=== PATIENT | female | born 1945 | race Caucasian/White ===

== ENCOUNTER → 2023-11-14 13:51 | Outpatient (REF) | payer OTHER, SELFPAY | LOC: RAD 13:51 | PROVIDERS: ATTENDING PHYSICIAN Surgery Vascular Surgery; FAMILY PHYSICIAN Student in an Organized Health Care Education/Training Program | DX: I65.23 Occlusion and stenosis of bilateral carotid arteries (principal) | CPT/HCPCS: 93880 ==

== ENCOUNTER 2023-12-05 06:10 | Inpatient (IN) | payer OTHER, SELFPAY ==
[2023-11-28 10:50] VITALS: BMI 45.6
[2023-11-28 11:13] LABS: % Basophils 1.5 % (0-2); % Immature Granulocytes 0.2 % (0-0.5); % Lymphocytes 34.4 % (20.5-51.1); % Monocytes 6.1 % (1.7-9.3); % Neutrophils 50.8 % (42.2-75.2); Absolute Basophils 0.1 10^3/uL (0-0.2); Absolute Eosinophils 0.5 10^3/uL (0-0.7); Absolute Lymphocytes 2.3 10^3/uL (1.2-3.4); Absolute Monocytes 0.4 10^3/uL (0.1-0.6); Absolute Neutrophils 3.4 10^3/uL (1.4-6.5); Hematocrit 37.7 % (37.0-47.0); Hemoglobin 12.5 g/dL (12.0-16.0); Mean Corp Hgb Conc. 33.2 g/dL (33.0-37.0); Mean Corpuscular Hgb 28.5 pg (27.0-31.0); Mean Corpuscular Volume 86.1 fL (81.0-99.0); Mean Platelet Volume 10.4 fL (7.4-10.4); Nucleated Red Blood Cells % 0 %; Platelet Count 182 10^3/uL (130-400); Red Blood Cell Count 4.38 10^6/uL (4.20-5.40); Red Cell Dist. Width 16.8 % (11.5-14.5); White Blood Cell Count 6.6 10^3/uL (4.8-10.8)
[2023-11-28 11:26] LABS: ALT (SGPT) 31 U/L (0-35); AST (SGOT) 47 U/L (14-36); Albumin 4.3 g/dl (3.5-5.0); Alkaline Phosphatase 114 U/L (38-126); Blood Urea Nitrogen 14 mg/dl (7-17); Calcium 9.3 mg/dl (8.4-10.2); Carbon Dioxide 31 mmol/L (22-30); Chloride 100 mmol/L (98-107); Estimated Creatinine Clearance 38 ml/min; Glucose 104 mg/dl (70-99); Potassium 3.7 mmol/L (3.5-5.1); Sodium 139 mmol/L (135-145); Total Bilirubin 0.8 mg/dl (0.2-1.3); Total Protein 7.5 g/dl (6.3-8.2); eGFR 39.23
[2023-12-05] VITALS (69 sets, daily range): BP systolic 65–227; BP diastolic 26–111; BMI 44.6
[2023-12-05] MEDS: NSS 317 ML IV (07:00)
[2023-12-05 07:35] LABS: Glucose - Point of Care 100 mg/dl (70-99)
[2023-12-05 08:23] LABS: ACT-LR - POC 208 Seconds (116-155)
[2023-12-05 09:05] LABS: ACT-LR - POC 258 Seconds (116-155)
[2023-12-05] MEDS: ZOFRAN 4 MG IV ×2 (09:53→11:22)
[2023-12-05] MEDS: DOPamine 400 MG 250 IV ×2 (09:55→22:22)
--- NOTE | 2023-12-05 10:09 | PTCARENOTE ---
Addendum entered by Preeti Murphy RN 12/05/23 10:20:
Dopamine now at 2.5 mg/kg due to BP 140/50
Addendum entered by Preeti Murphy RN 12/05/23 10:19:
Zofran given At 953
Original Note:
Pt arrived from the procedure room to [facility]. Unable to get a BP from several atempts . Rt upper arm, Rt calf, lt lower arm then manual. Initial BP was 60S. Dopamine started at 5mg/kg/min . Dr Yang was able to get a manual pressure of 70 S.IVF to
pressure bag. and open. Pt became nauseous and vomited bile material approx 100ml. Did not aspirate. she did c/o initially of a headache. Now at 1017 she is sleeping. Vital and all post procedure assessment times are off. Radial band remains
inplace with BP cuff on the RT upper arm per MD.
[2023-12-05] MEDS: NSS 1000 IV (10:25)
--- NOTE | 2023-12-05 11:43 | PTCARENOTE ---
Pt continues to be extremely restless.Still with an occipital headache 03/04 no change from when first recd.Dopamine was titrated down to 1.25 with good BP control until her BP was 77S. Dopamine back up to 5mg/kg then to 10. Pt started with dry
heaves again. Zofran 4 given. asked for BP 140-160 S. Mouth rinsed after small amt of mucous she brought up. Now sleeping on her rt side. Radial band intact with 8ml of air now . No problem with the cuff on the same side. Cristina DE OLIVEIRA has been at
the bedside and orders followed Dopamine now at 7.5mg/kg
--- NOTE | 2023-12-05 12:02 | PTCARENOTE ---
BP at 1200 185/71 Dopamine decreased to 5mg/kg
--- NOTE | 2023-12-05 13:53 | ITS.CL.PN ---
[facility] - Procedure Note
Procedure
Procedure Note:
CAROTID ANGIOGRAM AND CAROTID STENT REPORT
Date of Procedure: 12/05/2023
Referring: Nick Yang MD
PROCEDURE SUMMARY:
1. Cervical and cerebral angiography of the right carotid artery demonstrating ostial occlusion of the right external carotid artery with tandem 80% and 40% stenoses in the proximal right internal carotid artery
2. Successful angioplasty and stenting of the tandem 80% and 60% proximal right ICA lesions using a 9 x 30 mm precise stent with distal embolic filter protection
DESCRIPTION OF PROCEDURE: Following discussion with the patient and with Dr. Robert of vascular surgery, she was electively admitted for planned carotid angiography with right ICA stenting. Given her BMI of 44, I decided to attempt to do this
procedure via a right radial artery approach. Access was obtained via the right radial artery using a 5 [place] sheath. Heparin 5000 units was administered. Following an ACT of 218, we administered additional 2000 units of heparin. The ACT was
kept greater than 250 for the duration of the procedure. A 5 JR4 catheter was advanced into the right common carotid artery allowing cervical and cerebral angiography. Results include the following: The right common carotid artery is widely patent
without obstruction. The distal right common and proximal right internal carotid has severe calcific stenosis estimated at 80% severity. There is a second area of 40% stenosis approximately 15 mm superior in the proximal LORI. Cerebral imaging
demonstrates no further disease in the ICA. The right LEAH and right MCA are widely patent.
At this point, we opted to proceed with stenting. Of note, this patient was not felt to be a appropriate CEA candidate due to her body habitus with short neck. This is why we opted for STEPHAN despite the highly nature of the lesion. A 0.035 supra
core wire was advanced through the DELON catheter and positioned just inferior to the distal right common carotid artery. The DELON catheter was removed keeping the wire tip at this position. We then advanced a 6 x 90 cm shuttle sheath to the proximal
subclavian artery. The angle from the subclavian into the right common carotid artery was quite acute and the stiff dilator of the shuttle sheath would not make the turn into the common carotid. The dilator was removed and a 6 [place]an JR4
diagnostic catheter was advanced into the common carotid allowing us to advance the shuttle sheath around the angle into the common carotid. At this point, the JR4 and the supra core wire were removed. A BMW wire was advanced into the petrous
segment of the right ICA. A 6.0 spider filter was advanced over the BMW wire into the petrous segment in the BMW was removed. The filter was then advanced out of the delivery sheath. At this time predilatation was accomplished with a 3.0 x 30 mm
trek balloon to 12 michael. There was complete balloon expansion. Patient tolerated balloon angioplasty without significant bradycardia or hypotension. A 9 x 30 mm precise stent was advanced and positioned to cover both lesions with the proximal edge
of the stent in the distal common carotid artery. Stent deployment was followed by postdilatation with a 5.0 x 30 mm Via Trak balloon to 10 michael which also resulted in complete balloon expansion. Patient had bradycardia requiring atropine 0.5 mg
and hypotension with systolic blood pressure in the 90-95 range requiring several doses of phenylephrine. Angiography showed excellent positioning of the stent with brisk runoff. At this point, we attempted to capture the filter to complete the
procedure. This proved to be extremely difficult and the filter became stuck within the stent. Maneuvers including moving the patient's head left and right did not allow capture with the capture sheath. Ultimately, the capture sheath was advanced
to the filter and the entire system was removed with forceful traction. Examination of the filter demonstrated no embolic debris in the filter basket and the entire filter complex was intact. There was some shortening of the distal extent of the
stented segment. Final angiography demonstrated brisk flow through the stented segment and cerebral angiography showed brisk flow in the MCA and LEAH. Patient remained neurologically stable for the duration of the procedure and afterwards both in
the [facility] and for hours in the recovery room.
ANTI-COAGULATION THERAPY
1: Heparin 7000 units
Closure Device Used: None-the procedure was performed via the right radial artery. The Gideon's test was normal prior to the procedure. An R band was used for hemostasis.
Radiation (mGy): 537
DAP (cm2.Gy): 62.1
Fluoroscopy time: 21.7 minutes
CONCLUSIONS: Right carotid angiography showing severe calcific distal right common/proximal right internal carotid artery stenosis. This was successfully treated with carotid artery stenting with distal embolic protection. The procedure was
complicated by difficulty with removal of the filter but ultimately it was removed with forceful traction. We discussed the option for return for left ICA stenting in the next 1-2 months. This will be done via a transfemoral approach.
Copy to: Brittany Harding MD, Nick Yang MD
Nick Yang MD, [facility], [facility]
--- NOTE | 2023-12-05 14:11 | PTCARENOTE ---
At 1312 BP was 92/64 dopamine increased from 5 to 7.5mg/kg . At 1320 BP was 126/72 . dopamine increased again tp 10mg/kg. At 1350 BP was 186/81 decreased to 7.5mg/kg then bp at 1359 was 177/60 decreased to %mg/kg . Now at 1414 BP is 145/56. Pt
voided x2 slight odor noted. Comfortable a full neuro exam was done at 1400 and is 2. Still with a headache 03/04. Family updated. took sips of water.
--- NOTE | 2023-12-05 15:23 | CON.INTV ---
Consultation
Consultation Request
Date/Time Consultation Requested: 12/05/2023
Date/Time Consultation Performed: 12/05/2023
Requesting Provider: Dr. Yang
Performing Provider: Dr. Shan Cool
Reason for Consultation: Status post right carotid stent, hypotension requiring vasopressors.
Medical History
-
History of Present Illness:
77-year-old woman with history of obesity, fibromyalgia, obstructive sleep apnea, intolerant to CPAP, admitted electively through the [facility] for revascularization of carotid on the right. Underwent stent placement of the right carotid, became
hypotensive after the procedure. Required blood pressure augmentation with dopamine.
Case has been discussed with Dr. Díazr will maintain blood pressure augmentation, goal of mean arterial blood pressure over 65 mmHg for the next 4 to 5 hours.
Patient is asymptomatic.
Neurological exam at baseline.
Past Medical History
Past Medical History: Other (See assessment and plan section)
Social History
Tobacco: Former Smoker (Quit 20 years ago)
Employment: Retired
Family History
Family History: Reviewed & Not Pertinent
Allergies / Home Medications
Allergies
Allergy/AdvReac Type Severity Reaction Status Date / Time
No Known Drug Allergies Allergy Unknown Verified 12/05/23 06:33
Home Medications
Medication Instructions Recorded Confirmed Last Taken Type
levothyroxine 137 mcg tablet 200 mcg PO DAILY Thyroid 09/17/17 12/05/23 12/05/23 01:00 History
atorvastatin 20 mg tablet 20 mg PO DAILY High cholesterol 08/22/22 12/05/23 12/05/23 01:00 History
bupropion HCl 300 mg 24 hr tablet, 300 mg PO DAILY Mental 08/22/22 12/05/23 12/05/23 01:00 History
extended release Health/Anxiety
irbesartan 300 mg tablet 300 mg PO DAILY Blood pressure 08/22/22 12/05/23 12/05/23 01:00 History
latanoprost 0.005 % eye drops 1 drp BOTH EYES HS Eye condition 08/22/22 12/05/23 12/04/23 21:00 History
omeprazole 40 mg capsule,delayed 40 mg PO DAILY Gastrointestinal 08/22/22 12/05/23 12/05/23 01:00 History
release issue
furosemide 40 mg tablet 40 mg PO DAILY #30 tabs 08/27/22 12/05/23 12/04/23 07:00 Rx
aspirin 81 mg tablet 81 mg PO DAILY 12/05/23 12/05/23 12/05/23 01:00 History
clopidogrel 75 mg tablet (Plavix) 75 mg PO DAILY 12/05/23 12/05/23 12/05/23 01:00 History
ibuprofen 600 mg tablet 600 mg PO Q8H PRN aches 12/05/23 12/05/23 12/05/23 01:00 History
Review of Systems
-
History Source: Patient
All other systems: Negative unless noted
Vitals / Labs / Diagnostic Testing
Vital Signs
Temp Pulse Resp BP Pulse Ox
98.7 F 96 16 177/60 96
12/05/23 06:29 12/05/23 14:09 12/05/23 14:09 12/05/23 14:09 12/05/23 14:09
Lab Data
11/28/23 11:01
11/28/23 11:01
Diagnostic Testing:
Physical Exam
-
HEENT: Normocephalic
Cardiovascular: S1/S2
Respiratory: Clear and Non-Labored Respirations
GI: Soft and Distended (Obese)
Neurology: Awake, Alert, Oriented and No Motor Deficits
Skin: Warm
General: Respiratory Distress (n)
Assessment
-
77-year-old woman admitted through the cardiac catheterization lab after undergoing a right carotid stent placement. Discussed with Dr. Yang, patient was relatively hypotensive in the emergency room. He would like to maintain mean arterial
blood pressure greater than 65 mmHg for the next 4 to 5 hours. Currently on dopamine.
History of bilateral carotid stenosis: Status post right carotid stent
Relative hypotension requiring vasopressors for augmentation
Conditions present prior admission
Morbid obesity
Carotid artery stenosis
Obstructive sleep apnea-intolerant to CPAP
Former smoker quit 20 years ago
Restrictive lung disease due to obesity
Anxiety
Arthritis
Hypertension
Depression
Fibromyalgia
PMR
Assessment and plan:
Case discussed with Dr. Yang, will maintain blood pressure augmentation with dopamine, goal of mean arterial blood pressure greater than 65 for the next 4 to 5 hours.
Will continue with neurovascular checks frequently
Hemodynamic monitoring
Currently dopamine at 5 mics per minute, will continue to wean off hopefully in the next 4 to 5 hours.
Bedrest for now
Obtain a CBC and a BMP obtain chest [id number]
-
Oxygen supplementation to maintain pulse ox above 90%
Patient has history of obstructive sleep apnea-intolerant to CPAP.
Avoid sedatives
-
Advance diet as tolerated
Gentle hydration with normal saline
Repeat creatinine and electrolytes tomorrow
-
Continue antiplatelet therapy
-
Restart outpatient medication
-
Maintain critical care status until able to wean off dopamine.
-
Critical care statement: A total of 31 minutes of critical care time was provided for this patient today. This includes management of unstable vital signs, evaluation of the patient at bedside, reviewing the patient's pertinent medical records
including radiographs, microbiology, laboratory evaluations and discussion with primary team, critical care nursing, and respiratory therapy.
[2023-12-05 15:43] LABS: Mean Corp Hgb Conc. 33.3 g/dL (33.0-37.0); Mean Corpuscular Hgb 28.6 pg (27.0-31.0); Mean Corpuscular Volume 85.7 fL (81.0-99.0); Mean Platelet Volume 10.9 fL (7.4-10.4); Platelet Count 144 10^3/uL (130-400); Red Blood Cell Count 3.85 10^6/uL (4.20-5.40); Red Cell Dist. Width 16.5 % (11.5-14.5); White Blood Cell Count 6.8 10^3/uL (4.8-10.8)
[2023-12-05 15:53] LABS: APTT 38.7 Sec (23.4-35.0); INR 1.18; PT 14.9 Sec (11.4-14.6)
[2023-12-05 15:54] LABS: Blood Urea Nitrogen 17 mg/dl (7-17); Calcium 8.7 mg/dl (8.4-10.2); Carbon Dioxide 27 mmol/L (22-30); Chloride 102 mmol/L (98-107); Estimated Creatinine Clearance 50 ml/min; Glucose 143 mg/dl (70-99); Potassium 3.7 mmol/L (3.5-5.1); Sodium 138 mmol/L (135-145)
--- NOTE | 2023-12-05 16:18 | PTCARENOTE ---
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 Pt AAOx3 and very pleasant. Reports slight headache. Neuro checks WNL. Right radial site dressing C/D/I. Dopamine gtt adjusted per protocol. Family at bedside. Pt ordering dinner at
this time.
[2023-12-05] MEDS: TYLENOL 650 MG PO (18:28)
--- NOTE | 2023-12-05 18:45 | PTCARENOTE ---
BP very labile. please see Dopamine titration.
--- NOTE | 2023-12-05 21:14 | PTCARENOTE ---
Pt received at 19:00. Ox3, drowsy but easily arousable. SR, palpable pulses, continues on dopamine gtt--titrated to keep SBP >100. While asleep, pulse ox decreased to mid 80s on 2L NC--increased to 4L. Purewick in place. Safe environment maintained,
call case within reach.
[2023-12-05] MEDS: XALATAN OPHTHALMIC SOLUTION 1 DROP BOTH EYES (22:25)
[2023-12-06] VITALS (38 sets, daily range): BP systolic 80–138; BP diastolic 34–91; BMI 44.7
--- NOTE | 2023-12-06 00:43 | PTCARENOTE ---
Pt assessment unchanged. Dopamine gtt continues, titrated to maintain SBP >100. Currently infusing at 4mcg/kg/min.
--- NOTE | 2023-12-06 00:47 | PTCARENOTE ---
Assessment unchanged. Pt remains on dopamine, titrated to maintain SBP >100. Currently infusing at 4mcg/kg/min. Safe environment maintained, pt refused assistance with repositioning. Plan of care ongoing.
[2023-12-06 04:41] LABS: Hematocrit 31.3 % (37.0-47.0); Hemoglobin 10.4 g/dL (12.0-16.0); Mean Corp Hgb Conc. 33.2 g/dL (33.0-37.0); Mean Corpuscular Hgb 28.7 pg (27.0-31.0); Mean Corpuscular Volume 86.2 fL (81.0-99.0); Mean Platelet Volume 11.7 fL (7.4-10.4); Platelet Count 149 10^3/uL (130-400); Red Blood Cell Count 3.63 10^6/uL (4.20-5.40); Red Cell Dist. Width 16.5 % (11.5-14.5); White Blood Cell Count 8.8 10^3/uL (4.8-10.8)
[2023-12-06 04:58] LABS: Blood Urea Nitrogen 19 mg/dl (7-17); Calcium 8.6 mg/dl (8.4-10.2); Carbon Dioxide 25 mmol/L (22-30); Chloride 105 mmol/L (98-107); Estimated Creatinine Clearance 39 ml/min; Glucose 141 mg/dl (70-99); HDL Cholesterol 74 mg/dl; LDL Cholesterol, Calculated 48 mg/dl; Potassium 3.8 mmol/L (3.5-5.1); Sodium 136 mmol/L (135-145); Total Cholesterol 138 mg/dl (50-199); Triglyceride 80 mg/dl (10-149); Very Low Density Lipoprotein 16 mg/dl (0-30); eGFR 39.23
[2023-12-06] MEDS: ZOFRAN 4 MG IV (08:18)
[2023-12-06] MEDS: TYLENOL 650 MG PO (08:18)
--- NOTE | 2023-12-06 08:26 | CON.NEURO4 ---
Addendum entered and electronically signed by Fabian Bolden MD 12/06/23 17:05:
Studies reviewed.
I have personally examined the patient. I reviewed and agree with the RECONSIGNMENT CLERK's Note.
My addenda:
Awake, alert, interactive. No acute distress.
Speech intact.
Follows 2-step requests w/o difficulty. No tremor.
Extra-ocular movements 2+ left eye exotropia with reduced movement of the left eye
Facial movements full and symmetric. Hearing intact to normal conversational volume.
Normal UE movements bilaterally.
Neck: full ROM.
Chest: no dyspnea
Heart: no JVD
Ext: (-) Clubbing, (-) Cyanosis, (-) Edema
IMPRESSIONS/RECOMMENDATIONS:
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
Unclear if 3rd nerve palsy represents an unmasking of a prior partial weakness or if there has been a brainstem lesion, less likely based on carotid stenting on the contralateral side
Check MRI of brain
Continue dual antiplatelet therapy
continue atorvastatin
rehab evaluations
prochlorperazine for headache rescue
Eventual left internal carotid artery stenting
D/W patient / family
Will continue to follow patient.
Original Note:
Documented by User: Michelle Friedman NP 12/06/23 13:18
Consultation - Neurology 4
-
CONSULTING PHYSICIAN: Fabian Bolden MD
REFERRING PHYSICIAN: Cardiac Surgery/APOLONIA Saez
DICTATED BY: APOLONIA Briceno
DATE/TIME OF REQUEST: 12/06/23
DATE/TIME OF CONSULTATION: 12/06/23
Reason for Consultation: Dizziness and headache
History of Present Illness:
This is a 77-year-old right-handed female with severe bilateral carotid artery stenosis (R ICA 80-90%, L ICA 80% stenosis) who has presented to the hospital on 12/05/23 for right carotid artery stenting. Postoperatively patient was hypotensive
requiring a dopamine drip and she was reporting dizziness and increased chronic daily headache pain prompting Neurology consultation. Patient is currently a vague historian, but reports a history of fall with head trauma in July 2022 and has
subsequently had a chronic daily headache since then. She takes ibuprofen daily for headache relief. Patient reports that she initially felt okay postoperatively yesterday (12/05/23). She is unclear of when her symptoms started, but reports suddenly
developing dizziness, and worsening of her daily headache discomfort. She describes the dizziness as feeling off-balance and reports it is constant, but worse with movement and being in an upright position. Her headache is a pressure sensation in
the back of her head that she rates a 6/10. She reports diplopia with right gaze starting this morning. She also endorses photo/phonophobia and intermittent nausea with position change. She denies any speech/swallow difficulty, numbness, weakness,
chest pain, palpitations, and shortness of breath. She denies any history of TIA, stroke, or events like this in the past. She is currently on DAPT with aspirin and Plavix post-op R ICA stent.
Past Medical History: B/L carotid stenosis, HTN, HLD, Graves disease, hypothyroidism, depression, fibromyalgia, PMR, prediabetes, breast mass, vitamin D deficiency, urinary incontinence, CASSANDRA, MCI, GERD, hiatal hernia
Surgical History: R ICA stent, hysterectomy, b/l TKR, Cervical spine surgery, thyroid radiation, b/l cataract removal
Family History: Reviewed and noncontributory.
Social History: Former smoker. Denies alcohol and illicit drug use.
Allergies: No known allergies.
Home Medications: See below.
Review of Symptoms:
Patient denies any fever, chest pain, shortness of breath, GI or symptoms.
�Per the HPI.�All systems are reviewed negative except above.
Physical Exam:
The patient is afebrile, abdomen is nondistended, breathing is unlabored, skin is warm and dry, no edema.
NIH Stroke Scale:
I performed the NIH stroke scale on the patient on 12/06/23 at 0930. The patient scored 1 points on the NIH stroke scale assessment, which were assigned as follows: See below.
Neurologic Examination:
The patient is awake, alert and oriented x 3. She is able to follow commands and answer questions appropriately. There is no aphasia or dysarthria. On cranial nerve assessment, pupils are 3 mm bilateral, round and reactive to light and
accommodation. Visual kingsley are full. Left eye restricted adduction. Facial sensations are intact and bilaterally symmetrical, there is no facial asymmetry. Hearing is intact bilaterally to normal conversation volume. Tongue palate and uvula are
midline. Sternocleidomastoid strengths are full bilaterally. Motor strengths are 5/5 bilateral upper and lower extremities on medical research [place] scale. There is no drift or involuntary movement noted. Deep tendon reflexes are 2+ bilateral
upper and lower extremities and Babinski is absent bilaterally. There was no extinction noted on double simultaneous stimulation. Coordination is intact by finger to nose bilaterally.
Lab Results: See below.
Neuro Imaging:
1. CTA head/neck 12/06/23: There is a small meningioma in the left superior paramedian frontal convexity, stable from previous examination. Right carotid stent is present. Blooming from the stent limits evaluation of the lumen of the stent, but there
is good contrast enhancement proximal and distal to the stent. Calcific atherosclerotic disease involving the left carotid bulb and proximal left ICA, with estimated diameter reduction of approximately 80%, similar to previous CT angiography. Normal
appearance of the anterior cerebral and middle cerebral arteries bilaterally. There is severe calcific atherosclerotic disease at the origin of the left subclavian artery, compatible with high-grade stenosis or occlusion. There is enhancement of
both vertebral arteries with no significant narrowing. Relatively small caliber of the basilar artery with no focal narrowing. The posterior cerebral arteries appear supplied mainly by patent posterior communicating arteries. Of note, retrograde
flow was identified within the left vertebral artery on previous cerebrovascular ultrasound.
Differentials for the patient's presentation include:
1. Left PEARL, partial left cranial nerve 3 palsy; unlikely related to right carotid procedure given left eye symptoms.
2. L ICA 80% stenosis.
3. R ICA stent on 12/05/23.
4. Postoperative hypotension.
5. Chronic daily headache.
Patient has the following risk factors for their symptoms: L ICA 80% stenosis, R carotid stenting, HTN, HLD, age
IV Tenecteplase/IAT candidacy: Not a candidate due to major surgery in the past 24 hours, NIHSS <6.
Recommendations:
-MRI brain noncontrast ordered/pending
-Continue DAPT with aspirin 81mg an Plavix 75mg daily.
-Provide prochlorperazine 10mg IV x1 now for headache.
-Goal normotension.
-NIHSS and neurological checks per unit guidelines.
-Provide patient with a stroke education packet.
-LDL goal <70. LDL is 48. Continue home atorvastatin 20mg daily as LDL is at goal.
-Goal normoglycemia, hbA1c is pending.
-PT/OT/ST evaluations.
-DVT prophylaxis.
-Will follow pending results.
Discussed patient care with: Dr. Bolden, the patient
NIH Stroke Score
Subsequent NIH Scale
Date of Subsequent NIH Scale: 12/06/23
Time of Subsequent NIH Scale: 09:30
NIH Stroke Score
Level of Consciousness: 0 - Alert
LOC Questions: 0-Answers both correctly
LOC Commands: 0-Performs both correctly
Best Horizontal Gaze: 1-Partial gaze palsy
Visual Kingsley: 0=Normal, no visual loss
Facial Palsy: 0=Normal, symmetrical
Motor - Right Arm: 0=No drift 10 seconds
Motor - Left Arm: 0=No drift 10 seconds
Motor - Right Le-No drift 5 seconds
Motor - Left Le-No drift 5 seconds
Limb Ataxia: 0-Absent
Sensation: 0-Normal
Best Language: 0-No aphasia
Dysarthria: 0-Normal
Extinction and Inattention: 0-No abnormality
Total Score:: 1
Vital Signs and Labs
-
Vital Signs and Labs:
Vital Signs
Temp Pulse Resp BP Pulse Ox
97.7 F 55 13 116/36 98
12/06/23 07:42 12/06/23 06:15 12/06/23 06:15 12/06/23 06:00 12/06/23 06:15
Lab Results
12/06/23 04:19
12/06/23 04:19
PT 14.9 Sec (11.4-14.6) H 12/05/23 15:31
INR 1.18 12/05/23 15:31
APTT 38.7 Sec (23.4-35.0) H 12/05/23 15:31
Sodium 136 mmol/L (135-145) 12/06/23 04:19
Potassium 3.8 mmol/L (3.5-5.1) 12/06/23 04:19
BUN 19 mg/dl (7-17) H 12/06/23 04:19
Glucose 141 mg/dl (70-99) H 12/06/23 04:19
Calcium 8.6 mg/dl (8.4-10.2) 12/06/23 04:19
LDL Cholesterol, Calc 48 mg/dl 12/06/23 04:19
Medications
-
Active Medications
Generic Name Dose Route Start Last Admin
Trade Name Freq PRN Reason Stop Dose Admin
Acetaminophen 650 mg 12/05/23 09:05 12/06/23 08:18
Acetaminophen 325 Mg Tablet PO 01/02/24 09:04 650 mg
Q4HPRN PRN Administration
mild pain
Aspirin 81 mg 12/06/23 08:00
Aspirin 81 Mg (Enteric Coated) Tablet PO 01/03/24 07:59
DAILY BOO
Atorvastatin Calcium 20 mg 12/06/23 08:00
Atorvastatin (Lipitor) 20 Mg Tablet PO 01/03/24 07:59
DAILY BOO
Bupropion HCl 300 mg 12/06/23 08:00
Bupropion (24hr) Extended Release 300 Mg Tablet PO 01/03/24 07:59
DAILY BOO
Clopidogrel Bisulfate 75 mg 12/06/23 08:00
Clopidogrel 75 Mg Tablet PO 01/03/24 07:59
DAILY BOO
Dopamine HCl/Dextrose 400 mg in 250 mls @ 0 mls/hr 12/05/23 09:45 12/05/23 22:22
Dopamine 400 Mg IV 250 mls
PER PROTOCOL BOO Administration
Protocol
Per Protocol
Latanoprost 1 drop 12/05/23 22:00 12/05/23 22:25
Latanoprost 0.005% (Ophthalmic Solution) 2.5 Ml Bottle BOTH EYES 01/02/24 21:59 1 drop
HS BOO Administration
Levothyroxine Sodium 200 mcg 12/06/23 07:00
Levothyroxine 200 Mcg Tablet PO 01/03/24 06:59
DAILY@0700 BOO
Ondansetron HCl 4 mg 12/05/23 09:54 12/06/23 08:18
Ondansetron 4 Mg/2 Ml Vial IV 01/02/24 09:53 4 mg
Q6HPRN PRN Administration
nausea/vomiting
Pantoprazole Sodium 40 mg 12/06/23 08:00
Pantoprazole 40 Mg Delayed Release Tablet PO 01/03/24 07:59
DAILY BOO
Sodium Chloride 0 flush 12/05/23 07:00
Sodium Chloride 0.9% (Flush) Syringe IV 01/02/24 06:59
PER PROTOCOL BOO
Sodium Chloride 0 flush 12/05/23 11:00
Sodium Chloride 0.9% (Flush) Syringe IV 01/02/24 10:59
PER PROTOCOL BOO
Home Medications
Medication Instructions Recorded
levothyroxine 137 mcg tablet 200 mcg PO DAILY Thyroid 09/17/17
atorvastatin 20 mg tablet 20 mg PO DAILY High cholesterol 08/22/22
bupropion HCl 300 mg 24 hr tablet, 300 mg PO DAILY Mental 08/22/22
extended release Health/Anxiety
irbesartan 300 mg tablet 150 mg PO DAILY Blood pressure 08/22/22
latanoprost 0.005 % eye drops 1 drp BOTH EYES HS Eye condition 08/22/22
omeprazole 40 mg capsule,delayed 40 mg PO DAILY Gastrointestinal 08/22/22
release issue
aspirin 81 mg tablet 81 mg PO DAILY Blood Clot 12/05/23
Prevention/Tx
clopidogrel 75 mg tablet (Plavix) 75 mg PO DAILY Blood Clot 12/05/23
Prevention/Tx
duloxetine 60 mg capsule,delayed 60 mg PO DAILY Pain 12/05/23
release
furosemide 40 mg tablet 40 mg PO DAILY Fluid 12/05/23
Retention/Swelling
ibuprofen 600 mg tablet 600 mg PO Q8H PRN aches 12/05/23

Documented by User: Fabian Bolden MD 12/06/23 16:57
Consultation - Neurology 4
-
CONSULTING PHYSICIAN: Fabian Bolden MD
REFERRING PHYSICIAN: Cardiac Surgery/APOLONIA Saez
DICTATED BY: APOLONIA Briceno
DATE/TIME OF REQUEST: 12/06/23
DATE/TIME OF CONSULTATION: 12/06/23
Reason for Consultation: Dizziness and headache
History of Present Illness:
This is a 77-year-old right-handed female with severe bilateral carotid artery stenosis (R ICA 80-90%, L ICA 80% stenosis) who has presented to the hospital on 12/05/23 for right carotid artery stenting. Postoperatively patient was hypotensive
requiring a dopamine drip and she was reporting dizziness and increased chronic daily headache pain prompting Neurology consultation. Patient is currently a vague historian, but reports a history of fall with head trauma in July 2022 and has
subsequently had a chronic daily headache since then. She takes ibuprofen daily for headache relief. Patient reports that she initially felt okay postoperatively yesterday (12/05/23). She is unclear of when her symptoms started, but reports suddenly
developing dizziness, and worsening of her daily headache discomfort. She describes the dizziness as feeling off-balance and reports it is constant, but worse with movement and being in an upright position. Her headache is a pressure sensation in
the back of her head that she rates a 6/10. She reports diplopia with right gaze starting this morning. She also endorses photo/phonophobia and intermittent nausea with position change. She denies any speech/swallow difficulty, numbness, weakness,
chest pain, palpitations, and shortness of breath. She denies any history of TIA, stroke, or events like this in the past. She is currently on DAPT with aspirin and Plavix post-op R ICA stent.
Past Medical History: B/L carotid stenosis, HTN, HLD, Graves disease, hypothyroidism, depression, fibromyalgia, PMR, prediabetes, breast mass, vitamin D deficiency, urinary incontinence, CASSANDAR, MCI, GERD, hiatal hernia
Surgical History: R ICA stent, hysterectomy, b/l TKR, Cervical spine surgery, thyroid radiation, b/l cataract removal
Family History: Reviewed and noncontributory.
Social History: Former smoker. Denies alcohol and illicit drug use.
Allergies: No known allergies.
Home Medications: See below.
Review of Symptoms:
Patient denies any fever, chest pain, shortness of breath, GI or symptoms.
�Per the HPI.�All systems are reviewed negative except above.
Physical Exam:
The patient is afebrile, abdomen is nondistended, breathing is unlabored, skin is warm and dry, no edema.
NIH Stroke Scale:
I performed the NIH stroke scale on the patient on 12/06/23 at 0930. The patient scored 1 points on the NIH stroke scale assessment, which were assigned as follows: See below.
Neurologic Examination:
The patient is awake, alert and oriented x 3. She is able to follow commands and answer questions appropriately. There is no aphasia or dysarthria. On cranial nerve assessment, pupils are 3 mm bilateral, round and reactive to light and
accommodation. Visual kingsley are full. Left eye restricted adduction. Facial sensations are intact and bilaterally symmetrical, there is no facial asymmetry. Hearing is intact bilaterally to normal conversation volume. Tongue palate and uvula are
midline. Sternocleidomastoid strengths are full bilaterally. Motor strengths are 5/5 bilateral upper and lower extremities on medical research [place] scale. There is no drift or involuntary movement noted. Deep tendon reflexes are 2+ bilateral
upper and lower extremities and Babinski is absent bilaterally. There was no extinction noted on double simultaneous stimulation. Coordination is intact by finger to nose bilaterally.
Lab Results: See below.
Neuro Imaging:
1. CTA head/neck 12/06/23: There is a small meningioma in the left superior paramedian frontal convexity, stable from previous examination. Right carotid stent is present. Blooming from the stent limits evaluation of the lumen of the stent, but there
is good contrast enhancement proximal and distal to the stent. Calcific atherosclerotic disease involving the left carotid bulb and proximal left ICA, with estimated diameter reduction of approximately 80%, similar to previous CT angiography. Normal
appearance of the anterior cerebral and middle cerebral arteries bilaterally. There is severe calcific atherosclerotic disease at the origin of the left subclavian artery, compatible with high-grade stenosis or occlusion. There is enhancement of
both vertebral arteries with no significant narrowing. Relatively small caliber of the basilar artery with no focal narrowing. The posterior cerebral arteries appear supplied mainly by patent posterior communicating arteries. Of note, retrograde
flow was identified within the left vertebral artery on previous cerebrovascular ultrasound.
Differentials for the patient's presentation include:
1. Left PEARL, partial left cranial nerve 3 palsy; unlikely related to right carotid procedure given left eye symptoms.
2. L ICA 80% stenosis.
3. R ICA stent on 12/05/23.
4. Postoperative hypotension.
5. Chronic daily headache.
Patient has the following risk factors for their symptoms: L ICA 80% stenosis, R carotid stenting, HTN, HLD, age
IV Tenecteplase/IAT candidacy: Not a candidate due to major surgery in the past 24 hours, NIHSS <6.
Recommendations:
-MRI brain noncontrast ordered/pending
-Continue DAPT with aspirin 81mg an Plavix 75mg daily.
-Provide prochlorperazine 10mg IV x1 now for headache.
-Goal normotension.
-NIHSS and neurological checks per unit guidelines.
-Provide patient with a stroke education packet.
-LDL goal <70. LDL is 48. Continue home atorvastatin 20mg daily as LDL is at goal.
-Goal normoglycemia, hbA1c is pending.
-PT/OT/ST evaluations.
-DVT prophylaxis.
-Will follow pending results.
Discussed patient care with: Dr. Bolden, the patient
NIH Stroke Score
NIH Stroke Score
Total Score:: 1
--- NOTE | 2023-12-06 09:47 | W.PN.CARDCBS ---
Addendum entered and electronically signed by Dillan Gallo MD 12/06/23 11:32:
Patient seen and examined in collaboration with FAMILY READINESS SUPPORT ASSISTANT; agree with below.
-Patient underwent proximal right carotid artery stenting yesterday; now has headache/dizziness this a.m. and mild left eye lateral gaze on examination.
-Will consult Neurology; Humanities And Languages Professor updated.
-Try to wean off of dopamine.
-Will order CTA head/neck for now.
Original Note:
Today's Communication / Plan
-
CTA head neck, neuro c/s
continue to keep SBP >100, wean pressers as able
continue ICU level care
DAPT ASA/Plavix
Impression / Plan
-
PCP: Brittany Harding MD
CDY: Nick Yang MD
Impression/Plan:
#Bilateral Carotid artery stenosis - s/p R ICA stent severely calcified, c/b difficulty removing distal protection filter, residual L ICA stenosis
hypotension post requiring pressor support dopamine @3 to keep SBP >100
this am having severe h/a, dizziness, and visual changes, will get CTA head/neck
c/s Neurology
DAPT ASA/Plavix 3 mo
#HTN - currently hypotension on presser support wean as able, holding lasix and irbesartan
#HLD - LDL 48 continue atorvastatin 20mg
#Graves disease XRT 2005 - continue levothyroxine
#Depression - continue bupropion
PROCEDURE SUMMARY:
1.� Cervical and cerebral angiography of the right carotid artery demonstrating ostial occlusion of the right external carotid artery with tandem 80% and 40% stenoses in the proximal right internal carotid artery
2.� Successful angioplasty and stenting of the tandem 80% and 60% proximal right ICA lesions using a 9 x 30 mm precise stent with distal embolic filter protection
CONCLUSIONS: Right carotid angiography showing severe calcific distal right common/proximal right internal carotid artery stenosis.� This was successfully treated with carotid artery stenting with distal embolic protection.� The procedure was
complicated by difficulty with removal of the filter but ultimately it was removed with forceful traction.� We discussed the option for return for left ICA stenting in the next 1-2 months. This will be done via a transfemoral approach.
Progress Note - Transmission And Coordination Engineer
Subjective
Date of Service: December 06, 2023
c/o h/a, dizziness with little movement of head, visual changes
Objective
Labs:
12/06/23 04:19
12/06/23 04:19
Labs
Hgb 10.4 g/dL (12.0-16.0) L 12/06/23 04:19
Hct 31.3 % (37.0-47.0) L 12/06/23 04:19
Plt Count 149 10^3/uL (130-400) 12/06/23 04:19
PT 14.9 Sec (11.4-14.6) H 12/05/23 15:31
INR 1.18 12/05/23 15:31
APTT 38.7 Sec (23.4-35.0) H 12/05/23 15:31
Sodium 136 mmol/L (135-145) 12/06/23 04:19
Potassium 3.8 mmol/L (3.5-5.1) 12/06/23 04:19
BUN 19 mg/dl (7-17) H 12/06/23 04:19
Creatinine 1.4 mg/dL (0.6-1.0) H 12/06/23 04:19
Glucose 141 mg/dl (70-99) H 12/06/23 04:19
Vital Signs and I&O:
Vital Signs
Temp Pulse Resp BP Pulse Ox
97.7 F 55 13 116/36 98
12/06/23 07:42 12/06/23 06:15 12/06/23 06:15 12/06/23 06:00 12/06/23 06:15
Vital Signs
Temp Pulse Resp BP Pulse Ox
97.7 F 55 13 116/36 98
12/06/23 07:42 12/06/23 06:15 12/06/23 06:15 12/06/23 06:00 12/06/23 06:15
Intake & Output
12/04/23 12/05/23 12/06/23 12/07/23
06:59 06:59 06:59 06:59
Intake Total 167.5 / 167.5
Output Total 350 / 350
Balance -182.5 / -182.5
Physical Exam
Physical Exam
NAD, AOx3
S1, S2, RRR
CTAB, non labored
SNTND Bsx4, obese
R rad site c/d/i, mildly tender, good pulse
muscle strength 5/5 bilaterally
L eye exotropia
[2023-12-06] MEDS: LIPITOR 20 MG PO (10:03)
[2023-12-06] MEDS: SYNTHROID 200 MCG PO (10:03)
[2023-12-06] MEDS: ASPIR LOW (ENTERIC COATED) 81 MG PO (10:03)
[2023-12-06] MEDS: PLAVIX 75 MG PO (10:03)
[2023-12-06] MEDS: PROTONIX 40 MG PO (10:03)
[2023-12-06] MEDS: WELLBUTRIN XL (24 hour extended release) 300 MG PO (10:03)
--- NOTE | 2023-12-06 10:23 | W.PN.INTV ---
Today's Communication / Plan
Recommendations
CT head without contrast
Continue dopamine, will attempt to wean off, target systolic blood pressure greater than 100
Encourage hydration
Neurology consultation
Assessment
-
77-year-old woman admitted through the cardiac catheterization lab after undergoing a right carotid stent placement. Discussed with Dr. Yang, patient was relatively hypotensive in the emergency room. He would like to maintain mean arterial
blood pressure greater than 65 mmHg for the next 4 to 5 hours. Currently on dopamine.
History of bilateral carotid stenosis: Status post right carotid stent
Relative hypotension requiring vasopressors for augmentation
Conditions present prior admission
Morbid obesity
Carotid artery stenosis
Obstructive sleep apnea-intolerant to CPAP
Former smoker quit 20 years ago
Restrictive lung disease due to obesity
Anxiety
Arthritis
Hypertension
Depression
Fibromyalgia
PMR
Assessment and plan:
-
This morning complaining of headache/dizziness/mild nausea and possible visual changes.
No motor deficit on exam
Cardiology was notified, CT of the head without contrast has been ordered
Neurology has been consulted. Will wait for input
-
Will continue with neurovascular checks frequently
Hemodynamic monitoring
Will attempt to wean off dopamine, target systolic blood pressure greater than 800.
Bedrest for now
-
Oxygen supplementation to maintain pulse ox above 90%
Patient has history of obstructive sleep apnea-intolerant to CPAP.
Avoid sedatives
-
Mild MIKE-creatinine 1.4.
Status post IV hydration.
Advance diet as tolerated, encourage oral hydration.
Repeat creatinine and electrolytes tomorrow
-
Continue antiplatelet therapy
-
Maintain critical care status until able to wean off dopamine.
-
Patient will stay in the critical care unit for close observation for now.
Subjective Dataa
Subjective Data
Date of Service:
Date of Service: December 06, 2023
Chief Complaint: Catia Designer Follow Up (Status post right carotid stent placement)
Subjective:
This morning complaining of headache, dizziness and some visual changes.
Mild nausea.
Denies chest pain or shortness of breath
She was not able to sleep much overnight.
Review of Systems
General: Fever (n)
Cardiopulmonary: Dyspnea (none at rest), Cough (n) and Chest Pain (n)
GI: Abdominal Pain (n)
Objective Data
Data Reviewed
Vital Signs / I&O / Oxygen:
Vital Signs
Temp Pulse Resp BP Pulse Ox
97.7 F 60 15 124/59 98
12/06/23 07:42 12/06/23 10:15 12/06/23 10:00 12/06/23 10:00 12/06/23 10:15
Intake and Output
12/05/23 12/06/23 12/07/23
06:59 06:59 06:59
Intake Total 167.5 / 167.5
Output Total 350 / 350
Balance -182.5 / -182.5
SaO2 98
Nasal Cannula flow liters per 2
minute
Physical Exam
General: Respiratory Distress (n)
HEENT: Normocephalic
Cardiovascular: S1-S2 and Regular Rhythm
Respiratory: Clear and Non-Labored Respirations
GI: Soft and Distended (obese)
Neurology: Awake, Alert, Oriented, AO x 3, No Motor Deficits and Other (Possible right eye exotropia. No nystagmus.)
Skin: Warm
Labs/Micro/Reports
Lab Data
12/06/23 04:19
12/06/23 04:19
Laboratory Results
12/05/23
15:31
PT 14.9 H
INR 1.18
APTT 38.7 H
[2023-12-06 11:01] LABS: Ferritin 15.7 ng/ml (11.1-264.0)
[2023-12-06 11:05] LABS: Erythrocyte Sed Rate 9 mm/hour (0-20)
[2023-12-06 11:24] LABS: Free T4 0.68 ng/dl (0.78-2.19)
[2023-12-06 11:32] LABS: Vitamin B12 271 pg/ml (239-931)
--- NOTE | 2023-12-06 12:31 | PTCARENOTE ---
Pt AAOx3. Early this am reported h/a, dizziness, and nausea. MD notified. New L eye exotropia with double vision. Zofran given for nausea which pt reports has subsided. Tylenol given for h/a which was reported as 6/10 at that time. Pt reports
now unable to rate h/a. Pt now states, 'its more like pressure'. NIH is 0. Some tasks difficult d/t double vision.
Sinus annette HR 58. Dopamine weaned off. BP 99/40 at this time.
Lungs CTA. On 2L NC. SpO2 97%. SpO2 dips to 88% on room air while sleeping. Pt reports she is unable to tolerate her CPAP machine.
All other assessments unchanged.
[2023-12-06] MEDS: NSS 500 IV (15:47)
--- NOTE | 2023-12-06 15:53 | CM ---
economic manager reviewed patient's chart and met with patient and patient resides with her significant other in a one story home with one step to enter, patient is independent with adl's and ambulation had CPAP but returned it.
Ph[facility]
PCP; Brittany Harding
Plan; Home when stable.
[2023-12-06] MEDS: HEPARIN 5000 UNITS SC (18:09)
[2023-12-06] MEDS: XALATAN OPHTHALMIC SOLUTION 1 DROP BOTH EYES (22:50)
--- NOTE | 2023-12-06 23:04 | PTCARENOTE ---
Pt received at 19:00-daughter at bedside. NIH = 0. Pt denies dizziness/headache, continues to c/o double vision which resolves with closing the L eye. Brain MRI completed without issue. Assessment as documented.
--- NOTE | 2023-12-06 23:11 | W.PN.UPDATE ---
Update Note
Progress Note Update
MRI results relayed to Dr. Cross, neurologist. MRI of the brain 12/06/23- Numerous small scattered acute infarcts wtih greatest involvement of the right cerebral hemisphere and the cerebellum. Embolic infarcts are suspected given the distribution.
Dr. Cross's recommendations received: continue dual antiplatelet therapy, neurological checks and NIH, normal BP range, and cardiac echo for tomorrow.
[2023-12-07] VITALS (27 sets, daily range): BP systolic 85–158; BP diastolic 33–96; PULSE 60; O2SAT 93; BMI 45.1
[2023-12-07] MEDS: HEPARIN 5000 UNITS SC ×4 (00:58→23:17)
[2023-12-07] MEDS: TYLENOL 650 MG PO ×2 (01:01→10:53)
[2023-12-07 05:43] LABS: Hematocrit 30.2 % (37.0-47.0); Hemoglobin 9.8 g/dL (12.0-16.0); Mean Corp Hgb Conc. 32.5 g/dL (33.0-37.0); Mean Corpuscular Hgb 28.7 pg (27.0-31.0); Mean Corpuscular Volume 88.3 fL (81.0-99.0); Mean Platelet Volume 11.1 fL (7.4-10.4); Platelet Count 125 10^3/uL (130-400); Red Blood Cell Count 3.42 10^6/uL (4.20-5.40); Red Cell Dist. Width 17.2 % (11.5-14.5); White Blood Cell Count 7.2 10^3/uL (4.8-10.8)
[2023-12-07 06:07] LABS: Blood Urea Nitrogen 18 mg/dl (7-17); Calcium 8.6 mg/dl (8.4-10.2); Carbon Dioxide 28 mmol/L (22-30); Chloride 106 mmol/L (98-107); Estimated Creatinine Clearance 39 ml/min; Glucose 79 mg/dl (70-99); Magnesium 1.5 mg/dl (1.6-2.3); Potassium 3.8 mmol/L (3.5-5.1); Sodium 137 mmol/L (135-145); eGFR 39.23
[2023-12-07] MEDS: SYNTHROID 200 MCG PO (06:29)
--- NOTE | 2023-12-07 07:13 | W.PN.NEURO.1 ---
Today's Communication / Plan
-
-Monitor on cardiac telemetry
-Goal normotension
-Would check TTE
-Continue DAPT therapy and would not need to change from usual DAPT duration for post carotid stent
-Neurologic checks and NIH scales
-Would ideally wait 2 month minimum before consideration of pursuing left carotid revascularization
-Occupational therapy evaluation
-Eye patching will help with the double vision
-Outpatient ophthalmology evaluation if any help can be offered with specialty glasses for the diplopia
Will follow
Neuro Assessment/Plan
Assessment
77 year old woman who had right carotid artery on 12/04 stenting developed dizziness, headache, and left eye exotropia in the early post operative period, she had some hypotension requiring dopamine post operatively
CTA showed patent new right carotid stent, known high degree of left carotid stenosis > 80%
MRI brain with multiterritorial infarcts in the anterior and posterior territories suggestive of proximal embolic source of stroke. Strokes are not from either carotid artery since they include posterior circulation infarcts.
Etiologies are either aortic debris from catheterization from carotid stenting procedure, cardiac embolism, or joy-procedural stroke due to prothrombotic state and increased inflammation after procedure. Infarcts not at all consistent with
watershed/hypotension induced stroke on MRI appearance.
Left eye exotropia and mild weakness of left eye adduction (weakness of medial rectus muscle) is most likely explained by the pontine lesion versus the right thalamic lesion.
Expect good improvement in the double vision with time
Subjective/Objective
Subjective Data
Date of Service: December 07, 2023
No acute events, patient with some vision change still and binocular double vision
Objective Data
Vital Signs
Temp Pulse Resp BP Pulse Ox
98.6 F 60 15 149/38 94
12/07/23 03:41 12/07/23 05:30 12/07/23 05:30 12/07/23 05:30 12/07/23 05:30
Lab Results
12/07/23 05:29
12/07/23 05:29
PT 14.9 Sec (11.4-14.6) H 12/05/23 15:31
INR 1.18 12/05/23 15:31
APTT 38.7 Sec (23.4-35.0) H 12/05/23 15:31
Sodium 137 mmol/L (135-145) 12/07/23 05:29
Potassium 3.8 mmol/L (3.5-5.1) 12/07/23 05:29
BUN 18 mg/dl (7-17) H 12/07/23 05:29
Glucose 79 mg/dl (70-99) 12/07/23 05:29
Calcium 8.6 mg/dl (8.4-10.2) 12/07/23 05:29
LDL Cholesterol, Calc 48 mg/dl 12/06/23 04:19
Vitamin B12 271 pg/ml (239-931) 12/06/23 04:19
Patient Allergies
No Known Drug Allergies Allergy (Verified 12/05/23 06:33)
Unknown
Review of Systems
-
History Source: Patient
All other systems: Reviewed and negative
Constitutional: No Symptoms
EENT: No Symptoms Reported
Respiratory: No Symptoms
Cardiac: No Symptoms
Abdomen/GI: No Symptoms
Genitourinary: No Symptoms
Musculoskeletal: No Symptoms
Skin: No Symptoms
Neuro: See existing Neuro Note; Negative Speech Problem
Endocrine: No Symptoms
Hematologic / Lymphatic: No Symptoms
Allergy / Immunology: No Symptoms
Physical Exam
-
General: No Apparent Distress
Eyes: No Ptosis
HEENT: Normocephalic
Neck: No Bruits Bilaterally
Respiratory: Clear to Auscultation
Cardiac: Regular Rhythm
GI: Normal Bowel Sounds
Skin: Unremarkable
Extremities: No Clubbing
Psych: Unremarkable; Negative Agitated
Extended Neurological Exam
Mood & Affect: Mood Unremarkable and Affect Unremarkable
Attention Span & Concentration: Awake, Alert and Interactive
Memory: Unremarkable
Tremor: Hand Tremor Absent
Involuntary Movement: None
Speech: Quality Unremarkable and Quantity Unremarkable; Negative Expressive Aphasia, Receptive Aphasia or Dysarthric
Cranial Nerve II: Left Eye: Pupillary Reactivity Unremarkable, Pupillary Size Unremarkable and Visual Kingsley Intact
Cranial Nerve II: Right Eye: Pupillary Reactivity Unremarkable, Pupillary Size Unremarkable and Visual Kingsley Intact
Cranial Nerves III, IV, : Extraocular Movement: Other (Very minimal limitation in left eye adduction, very minimal left eye exotropia at rest, upgaze, downgaze normal, right eye all normal EOM's, no nystagmus seen)
Cranial Nerve V: Facial Sensation: Intact to Light Touch
Cranial Nerve VII: Facial Symmetry: Normal Facial Symmetry
Cranial Nerve VIII: Hearing: Unremarkable Hearing to Normal Conversational Volume
Cranial Nerves IX, X: Palate Movement: Palate Elevation Symmetric
Cranial Nerve XII: Tongue Protusion: Midline
Muscle Strength, Overall: Full Throughout
Muscle Bulk & Tone: Bulk Unremarkable
Pronator Drift: No Drift in Upper Extremities
Deep Tendon Reflexes: Unremarkable Throughout
Vibration Sensation: Unremarkable
Touch Sensation: Unremarkable
Coordination: Ftnjem-[id number] Testing Unremarkable
Babinski Sign: Absent Bilaterally
Data Reviewed
-
CT-A: Report Reviewed and Image Reviewed
CT Head: Report Reviewed and Image Reviewed
MRI Head: Report Reviewed and Image Reviewed
Echocardiogram: Ordered and Pending
[2023-12-07 07:52] LABS: ACT-LR - POC > 397 Seconds (116-155)
--- NOTE | 2023-12-07 08:44 | W.PN.CD ---
Today's Communication / Plan
-
ECHO today
Hold lasix and antihypertensives today unless SBP>170
OT consult
Impression / Plan
-
PCP: Brittany Harding MD
CDY: Nick Yang MD
Impression/Plan:
#Bilateral Carotid artery stenosis - s/p R ICA stent severely calcified, c/b difficulty removing distal protection filter, residual L ICA stenosis
hypotension post requiring pressor support dopamine- dopamine is now off
- CTA yesterday shows stent is patent
-MRI yesterday with multiple small acute embolic hits in R hemisphere and cerebellum
-DAPT ASA/Plavix 3 mo
-OT consult
-ECHO today
- OK to move to telemetry. Hopefully will be ok for home tomorrow
- Will discuss option for and timing of L ICA treatment in office. Plan to put off x 2months
#HTN - Continue to hold antihypertensives and lasix
#HLD - LDL 48 continue atorvastatin 20mg
#Graves disease XRT 2005 - continue levothyroxine
#Depression - continue bupropion
PROCEDURE SUMMARY:
1.� Cervical and cerebral angiography of the right carotid artery demonstrating ostial occlusion of the right external carotid artery with tandem 80% and 40% stenoses in the proximal right internal carotid artery
2.� Successful angioplasty and stenting of the tandem 80% and 60% proximal right ICA lesions using a 9 x 30 mm precise stent with distal embolic filter protection
CONCLUSIONS: Right carotid angiography showing severe calcific distal right common/proximal right internal carotid artery stenosis.� This was successfully treated with carotid artery stenting with distal embolic protection.� The procedure was
complicated by difficulty with removal of the filter but ultimately it was removed with forceful traction.� We discussed the option for return for left ICA stenting in the next 1-2 months. This will be done via a transfemoral approach.
Physical Exam
Vital Signs/Labs
Vital Signs
Temp Pulse Resp BP Pulse Ox
98.2 F 53 13 142/41 100
12/07/23 07:57 12/07/23 07:15 12/07/23 07:15 12/07/23 07:00 12/07/23 07:15
12/06/23 12/07/23 12/08/23
06:59 06:59 06:59
Actual Weight 236 lb 8.896 oz 238 lb 8.642 oz
12/07/23 05:29
12/07/23 05:29
PT 14.9 Sec (11.4-14.6) H 12/05/23 15:31
INR 1.18 12/05/23 15:31
APTT 38.7 Sec (23.4-35.0) H 12/05/23 15:31
Magnesium 1.5 mg/dl (1.6-2.3) L 12/07/23 05:29
Triglycerides 80 mg/dl (10-149) 12/06/23 04:19
LDL Cholesterol, Calc 48 mg/dl 12/06/23 04:19
VLDL Cholesterol, Calc 16 mg/dl (0-30) 12/06/23 04:19
HDL Cholesterol 74 mg/dl 12/06/23 04:19
Free T4 0.68 ng/dl (0.78-2.19) L 12/06/23 04:19
Physical Exam
Constitutional: No acute distress and Comfortable
Cardiovascular: Rhythm & rate is regular, S1S2 is normal and Murmur/rub/gallop absent
Respiratory: Respiratory effort normal and Lungs clear to auscul.
GI: Soft, Distention absent and Non tender
Neuro/Psych: AO x 3 and Other (diplopia persists. Very subtle left eye EOM abnormality when looking to left)
Data Reviewed
-
Date of Service: December 07, 2023
[2023-12-07 08:54] LABS: Glycohemoglobin (HgbA1c) 5.9 % (4.0-5.6)
--- NOTE | 2023-12-07 09:06 | PN.CDI ---
CDI
- -
CDI:
Physician Documentation Request
Admit Date: 12/05/23 06:10
Dear Doctor Celia,
Patient admitted with stroke.
Please review the following and provide your response in the progress notes.
Clinical Indicators:
Height: 5' 1'
Weight:238 lbs
BMI: 45.1
If possible, please provide an associated diagnosis related to the abnormal BMI, such as:
Obese
Overweight
BMI is not significant
Other
BMI > or = to 40.0
Overweight
Obesity:
Due to excess calories
Drug induced
Due to other cause
Severe or morbid obesity:
With alveolar hypoventilation (Obesity hypoventilation syndrome)
Without alveolar hypoventilation
Use of terms such as suspected, likely, concern for, or probable (associated with a specific diagnosis that is being evaluated, monitored, or treated as if it exists) are acceptable and can be coded in the inpatient setting, when documented at the
time of discharge.
Thank you,
Marybeth Guerrero RN, BSN
CDI Specialist
Available via [facility] text
Please use your independent medical judgment in providing your response.
[2023-12-07] MEDS: LIPITOR 20 MG PO (09:07)
[2023-12-07] MEDS: PLAVIX 75 MG PO (09:07)
[2023-12-07] MEDS: ASPIR LOW (ENTERIC COATED) 81 MG PO (09:07)
[2023-12-07] MEDS: WELLBUTRIN XL (24 hour extended release) 300 MG PO (09:08)
[2023-12-07] MEDS: PROTONIX 40 MG PO (09:08)
[2023-12-07] MEDS: CYMBALTA DELAYED RELEASE 60 MG PO (09:08)
[2023-12-07] MEDS: KCL 20 MEQ PO (09:16)
--- NOTE | 2023-12-07 10:00 | PTCARENOTE ---
Received pt awake and alert.Speech is appropriate.No dysarthria or aphasia noted.Slight + left gaze deviation noted.+ diplopia bl eyes.Eye patch given to pt with relief of diplopia.NIHSS 1.Pt assisted OOB to chair with 2 person minimal assist.SR
noted.POX 93% on RA.Lungs CTA.Appetite good.Pt was eating pastry from outside.Pt is ordered cholesterol lowering diet.Pt advised to order from pt menu,and/or to maintain low cholesterol diet with food brought in by her daughter.No BM.Voiding via
[employer].Skin integrity as documented.Plan of care discussed with pt and her daughter.
--- NOTE | 2023-12-07 11:18 | PTCARENOTE ---
c/o posterior head pain.Medicated with Tylenol as requested.Mental status unchanged.
--- NOTE | 2023-12-07 11:31 | W.PN.INTV ---
Today's Communication / Plan
Recommendations
Continue with current care
Physical therapy
Occupational Therapy
Antiplatelets
Dopamine has been discontinued.
Sign off.
Please call with question.
Assessment
-
77-year-old woman admitted through the cardiac catheterization lab after undergoing a right carotid stent placement. Discussed with Dr. Yang, patient was relatively hypotensive in the emergency room. He would like to maintain mean arterial
blood pressure greater than 65 mmHg for the next 4 to 5 hours. Currently on dopamine.
History of bilateral carotid stenosis: Status post right carotid stent
Relative hypotension requiring vasopressors for augmentation
Developed headache/vision problems after procedure.
MRI 12/06/2023:Numerous small scattered acute infarcts with greatest involvement of the right cerebral hemisphere and the cerebellum. Embolic infarcts are suspected given the distribution.
Conditions present prior admission
Morbid obesity
Carotid artery stenosis
Obstructive sleep apnea-intolerant to CPAP
Former smoker quit 20 years ago
Restrictive lung disease due to obesity
Anxiety
Arthritis
Hypertension
Depression
Fibromyalgia
PMR
Assessment and plan:
-
Clinically improved this morning
Nausea and vision problems for the most part resolved.
Continues to report some head pressure but otherwise no vision problems.
MRI noted with multiple scattered small infarcts suggestive of embolic stroke.
Neurology following the patient
Continue antiplatelet therapy
Dopamine has been discontinued. Blood pressures are stable
-
Increase activity as tolerated
Out of bed as able
-
Oxygen supplementation to maintain pulse ox above 90%
Patient has history of obstructive sleep apnea-intolerant to CPAP.
-
Mild MIKE-creatinine 1.4.
Advance diet as tolerated, encourage oral hydration.
Follow.
-
Patient has been transferred to [facility]/telemetry. Critical care team will sign off.
Call pulmonary if any respiratory issues arise.
Subjective Dataa
Subjective Data
Date of Service:
Date of Service: December 07, 2023
Chief Complaint: Street Car Inspector Follow Up (Status post right carotid stent placement) and Pulmonary Follow Up
Subjective:
Patient denies any acute complaints.
No significant headache, denies nausea or vomiting.
Denies any lower arm or arm weakness.
Review of Systems
General: Fever (n)
Cardiopulmonary: Dyspnea (none at rest), Cough (n) and Chest Pain (n)
GI: Abdominal Pain (n) and Nausea (n)
Objective Data
Data Reviewed
Vital Signs / I&O / Oxygen:
Vital Signs
Temp Pulse Resp BP Pulse Ox
98.2 F 60 16 108/81 88
12/07/23 11:30 12/07/23 10:45 12/07/23 10:45 12/07/23 10:00 12/07/23 10:45
Intake and Output
12/06/23 12/07/23 12/08/23
06:59 06:59 06:59
Intake Total 167.5 / 179.1 26.6 / 26.6 480 / 480
Output Total 350 / 350 1200 / 1200 400 / 400
Balance -182.5 / -170.9 -1173.4 / -1173.4 80 / 80
SaO2 88
Nasal Cannula flow liters per 2
minute
Physical Exam
General: Respiratory Distress (n)
HEENT: Normocephalic
Cardiovascular: S1-S2 and Regular Rhythm
Respiratory: Clear and Non-Labored Respirations
GI: Soft and Distended (obese)
Neurology: Awake, Alert, Oriented, AO x 3, No Motor Deficits and Other (Possible right eye exotropia. No nystagmus.)
Skin: Warm
Labs/Micro/Reports
Lab Data
12/07/23 05:29
12/07/23 05:29
--- NOTE | 2023-12-07 12:35 | PTCARENOTE ---
Pt assessed.Assessment unchanged.c/o posterior neck and head pain despite Tylenol administration.Dr Melo texted.Awaiting reply.PT/OT working with pt at this time.
--- NOTE | 2023-12-07 15:26 | PTCARENOTE ---
Report given to 2 Adelso RN.
[2023-12-07] MEDS: XALATAN OPHTHALMIC SOLUTION 1 DROP BOTH EYES (23:16)
[2023-12-08 03:30] VITALS: BP 157/55
--- NOTE | 2023-12-08 05:37 | PTCARENOTE ---
Pt ambulated to toilet to void w standby assist x1 & RW. Pt c/o of some dizziness on the way back to bed but was able to make it back to bed without any issues. Denied pain/discomfort. Assessment ongoing.
[2023-12-08] MEDS: SYNTHROID 200 MCG PO (06:04)
[2023-12-08 07:20] VITALS: BP 153/56
[2023-12-08] MEDS: LIPITOR 20 MG PO (08:07)
[2023-12-08] MEDS: PROTONIX 40 MG PO (08:07)
[2023-12-08] MEDS: PLAVIX 75 MG PO (08:07)
[2023-12-08] MEDS: ASPIR LOW (ENTERIC COATED) 81 MG PO (08:07)
[2023-12-08] MEDS: CYMBALTA DELAYED RELEASE 60 MG PO (08:08)
[2023-12-08] MEDS: HEPARIN 5000 UNITS SC ×2 (08:11→15:04)
[2023-12-08] MEDS: WELLBUTRIN XL (24 hour extended release) 300 MG PO (08:11)
[2023-12-08] MEDS: TYLENOL 650 MG PO (08:14)
--- NOTE | 2023-12-08 10:42 | W.PN.CD ---
Today's Communication / Plan
-
-Continue DAPT with ASA/Plavix for 3 months.
-ECHO yesterday was unremarkable.
-Patient is now mildly hypertensive; will resume irbesartan at a lower dose of 75 mg daily.
-Resume Lasix tomorrow at home.
-Likely discharge to home later today.
Impression / Plan
-
PCP: Brittany Harding MD
CDY: Nick Yang MD
Impression/Plan:
#Bilateral Carotid artery stenosis - s/p R ICA stent severely calcified, c/b difficulty removing distal protection filter, residual L ICA stenosis
-Hypotension post requiring pressor support dopamine- dopamine is now off.
-CTA shows stent is patent.
-MRI with multiple small acute embolic hits in R hemisphere and cerebellum
-Continue DAPT with ASA/Plavix for 3 months.
-OT consulted
-ECHO yesterday was unremarkable.
-Likely discharge to home later today.
-Will discuss option for and timing of L ICA treatment in office; plan to put off x 2months.
#HTN -
-Patient is now mildly hypertensive; will resume irbesartan at a lower dose of 75 mg daily.
-Resume Lasix tomorrow at home.
#HLD - LDL 48 continue atorvastatin 20mg
#Graves disease XRT 2005 - continue levothyroxine
# Brief NSVT-denies any chest pain or palpitations
-Baseline bradycardia at 60s; will not initiate beta-charly at this time.
-Conservative management for now; follow-up with primary Laminate Floor Installer as outpatient.
#Depression - continue bupropion
PROCEDURE SUMMARY:
1.� Cervical and cerebral angiography of the right carotid artery demonstrating ostial occlusion of the right external carotid artery with tandem 80% and 40% stenoses in the proximal right internal carotid artery
2.� Successful angioplasty and stenting of the tandem 80% and 60% proximal right ICA lesions using a 9 x 30 mm precise stent with distal embolic filter protection
CONCLUSIONS: Right carotid angiography showing severe calcific distal right common/proximal right internal carotid artery stenosis.� This was successfully treated with carotid artery stenting with distal embolic protection.� The procedure was
complicated by difficulty with removal of the filter but ultimately it was removed with forceful traction.� We discussed the option for return for left ICA stenting in the next 1-2 months. This will be done via a transfemoral approach.
Physical Exam
Vital Signs/Labs
Vital Signs
Temp Pulse Resp BP Pulse Ox
98.3 F 70 17 153/56 96
12/08/23 07:20 12/08/23 07:20 12/08/23 07:20 12/08/23 07:20 12/08/23 08:02
12/07/23 12/08/23 12/09/23
06:59 06:59 06:59
Actual Weight 108.2 kg
12/07/23 05:29
12/07/23 05:29
PT 14.9 Sec (11.4-14.6) H 12/05/23 15:31
INR 1.18 12/05/23 15:31
APTT 38.7 Sec (23.4-35.0) H 12/05/23 15:31
Magnesium 1.5 mg/dl (1.6-2.3) L 12/07/23 05:29
Triglycerides 80 mg/dl (10-149) 12/06/23 04:19
LDL Cholesterol, Calc 48 mg/dl 12/06/23 04:19
VLDL Cholesterol, Calc 16 mg/dl (0-30) 12/06/23 04:19
HDL Cholesterol 74 mg/dl 12/06/23 04:19
Free T4 0.68 ng/dl (0.78-2.19) L 12/06/23 04:19
Physical Exam
Constitutional: No acute distress and Comfortable
EENT: Anicteric
Cardiovascular: Rhythm & rate is regular, Pedal edema is absent, Systolic murmur present (2/6) and S1S2 is normal
Respiratory: Respiratory effort normal and Lungs clear to auscul.
GI: Soft
Other: Skin (Warm, dry, intact)
Data Reviewed
-
Date of Service: December 08, 2023
EKG: Tracing Personally Visualized and interpreted (Telemetry: Sinus rhythm)
Medical Tests (PFT, Pathology etc): Discussed with Patient and Discussed with Family (Daughter and son at bedside)
Labs: Labs Reviewed by me
[2023-12-08 11:15] VITALS: BP 138/45
[2023-12-08 14:58] VITALS: BP 138/45
[2023-12-08 15:10] VITALS: PULSE 65; O2SAT 95
--- NOTE | 2023-12-08 15:50 | CM ---
Recommendation for VN/PT. preference is [facility]. referral sent.
--- NOTE | 2023-12-08 16:01 | W.DS.TRANS ---
Addendum entered and electronically signed by Dillan Gallo MD 12/12/23 07:50:
Agree with below.
Original Note:
DC Summary - Sales Agent
-
Discharge Instructions:
Discharge Diagnosis/Procedures Angioplasty and stent to right carotid artery
CVA
Diet Low Cholesterol
Activity No strenuous activity
Driving Restrictions Not until seen by your Dr
Bathing Restrictions None
Other Services PT
Instructions:
Stand-Alone Forms: DC Instructions- Cath/EP Lab
Changes to Home Medications: Yes
Discharge Medications:
DC Medications w/original date entered in [facility]
levothyroxine 137 mcg tablet 200 mcg PO DAILY Thyroid 09/17/17
atorvastatin 20 mg tablet 20 mg PO DAILY High cholesterol 08/22/22
bupropion HCl 300 mg 24 hr tablet, extended release 300 mg PO DAILY Mental Health/Anxiety 08/22/22
latanoprost 0.005 % eye drops 1 drp BOTH EYES HS Eye condition 08/22/22
aspirin 81 mg tablet 81 mg PO DAILY Blood Clot Prevention/Tx 12/05/23
duloxetine 60 mg capsule,delayed release 60 mg PO DAILY Pain 12/05/23
furosemide 40 mg tablet 40 mg PO DAILY Fluid Retention/Swelling 12/05/23
acetaminophen 325 mg tablet 650 mg PO Q4HPRN PRN mild pain #30 tabs 12/08/23
clopidogrel 75 mg tablet (Plavix) 75 mg PO DAILY Blood Clot Prevention/Tx #90 tabs 12/08/23
irbesartan 75 mg tablet 75 mg PO DAILY #30 tabs 12/08/23
pantoprazole 40 mg tablet,delayed release 40 mg PO DAILY #90 tabs 12/08/23
Home Medication Changes
Irbesartan decreased from 150mg to 75mg
Omeprazole discontinued
Protonix is new
Pending Results: No
--- NOTE | 2023-12-08 16:10 | CM ---
Patient has been medically cleared for discharge to home with [facility] VN and PT services. Daughter will transport home.
== END 2023-12-08 16:34 | disposition home health service (06) | DRG 35 ==
LOC: 2 SOUTH 06:10
PROVIDERS: Nurse Practitioner; Nurse Practitioner Adult Health; ADMITTING PHYSICIAN Internal Medicine Cardiovascular Disease; CONSULT PHYSICIAN Internal Medicine Critical Care Medicine; CONSULT PHYSICIAN Psychiatry & Neurology Neurology; FAMILY PHYSICIAN Student in an Organized Health Care Education/Training Program
PROC: 037K3DZ Dilation of Right Internal Carotid Artery with Intraluminal Device, Percutaneous Approach (ICD-10-PCS; 2023-12-05)
PROC: B3131ZZ Fluoroscopy of Right Common Carotid Artery using Low Osmolar Contrast (ICD-10-PCS; 2023-12-05)
DX: I63.40 Cerebral infarction due to embolism of unspecified cerebral artery (principal); I47.20 Ventricular tachycardia, unspecified; Z68.42 Body mass index [BMI] 45.0-49.9, adult; N17.9 Acute kidney failure, unspecified; I95.81 Postprocedural hypotension; E66.01 Morbid (severe) obesity due to excess calories; M79.7 Fibromyalgia; G47.33 Obstructive sleep apnea (adult) (pediatric); J98.4 Other disorders of lung; F41.9 Anxiety disorder, unspecified; I65.23 Occlusion and stenosis of bilateral carotid arteries; M19.90 Unspecified osteoarthritis, unspecified site; I10 Essential (primary) hypertension; F32.A Depression, unspecified; M35.3 Polymyalgia rheumatica; H49.02 Third [oculomotor] nerve palsy, left eye; Z96.653 Presence of artificial knee joint, bilateral; E03.9 Hypothyroidism, unspecified; E05.00 Thyrotoxicosis with diffuse goiter without thyrotoxic crisis or storm; E55.9 Vitamin D deficiency, unspecified; K21.9 Gastro-esophageal reflux disease without esophagitis; K44.9 Diaphragmatic hernia without obstruction or gangrene; R32 Unspecified urinary incontinence; E78.5 Hyperlipidemia, unspecified; R73.03 Prediabetes; Z87.891 Personal history of nicotine dependence; Z79.82 Long term (current) use of aspirin; Z79.02 Long term (current) use of antithrombotics/antiplatelets; Z79.890 Hormone replacement therapy
CPT/HCPCS: 36415; 37215; 70496; 70498; 70551; 71045; 80048; 80053; 80061; 82607; 82728; 82746; 82962; 83036; 83735; 84439; 84443; 85025; 85027; 85347; 85610; 85652; 85730; 93005; 93306; 97116; 97163; 97166; 97530; 97535; C1725; C1769; C1876; C1884; C1894; Q9967

== ENCOUNTER → 2023-12-29 13:17 | Outpatient (REF) | payer OTHER, SELFPAY | LOC: HWRAD 13:17 | PROVIDERS: ATTENDING PHYSICIAN Internal Medicine Cardiovascular Disease; FAMILY PHYSICIAN Student in an Organized Health Care Education/Training Program | DX: I65.23 Occlusion and stenosis of bilateral carotid arteries (principal) | CPT/HCPCS: 93880 ==

== ENCOUNTER 2024-02-06 06:05 | Inpatient (IN) | payer OTHER, SELFPAY ==
[2024-01-25 13:03] VITALS: BMI 45.9
[2024-01-25 14:02] LABS: % Basophils 1.3 % (0-2); % Eosinophils 4.1 % (0-6); % Immature Granulocytes 0.3 % (0-0.5); % Monocytes 9.8 % (1.7-9.3); % Neutrophils 60.5 % (42.2-75.2); Absolute Basophils 0.1 10^3/uL (0-0.2); Absolute Eosinophils 0.3 10^3/uL (0-0.7); Absolute Lymphocytes 1.7 10^3/uL (1.2-3.4); Absolute Monocytes 0.7 10^3/uL (0.1-0.6); Absolute Neutrophils 4.3 10^3/uL (1.4-6.5); Hematocrit 33.9 % (37.0-47.0); Hemoglobin 10.8 g/dL (12.0-16.0); Mean Corp Hgb Conc. 31.9 g/dL (33.0-37.0); Mean Corpuscular Hgb 27.8 pg (27.0-31.0); Mean Corpuscular Volume 87.1 fL (81.0-99.0); Mean Platelet Volume 10.2 fL (7.4-10.4); Nucleated Red Blood Cells % 0 %; Platelet Count 223 10^3/uL (130-400); Red Blood Cell Count 3.89 10^6/uL (4.20-5.40); Red Cell Dist. Width 14.7 % (11.5-14.5); White Blood Cell Count 7.1 10^3/uL (4.8-10.8)
[2024-01-25 14:27] LABS: ALT (SGPT) 26 U/L (0-35); AST (SGOT) 46 U/L (14-36); Alkaline Phosphatase 113 U/L (38-126); Blood Urea Nitrogen 10 mg/dl (7-17); Calcium 9.4 mg/dl (8.4-10.2); Carbon Dioxide 30 mmol/L (22-30); Chloride 97 mmol/L (98-107); Estimated Creatinine Clearance 42 ml/min; Glucose 104 mg/dl (70-99); Sodium 135 mmol/L (135-145); Total Bilirubin 0.6 mg/dl (0.2-1.3); Total Protein 7.3 g/dl (6.3-8.2); eGFR 46.91
[2024-02-06] VITALS (10 sets, daily range): BP systolic 103–162; BP diastolic 32–67; BMI 42.5
[2024-02-06] MEDS: NSS 306 ML IV (07:17)
--- NOTE | 2024-02-06 09:05 | ITS.CL.CA ---
[facility] - Carotid Angiography
Carotid Angiography
Procedure Report:
CAROTID ANGIOGRAM REPORT
Date of Procedure: 02/05/2014
Referring: Nick Yang MD
Operators: Nick Yang MD, Leon Shepherd MD
Indication: Bilateral asymptomatic high-grade internal carotid artery stenoses. The patient underwent right ICA stenting 12/05/2023 and now returns for planned left ICA stenting
PROCEDURE SUMMARY:
Left carotid angiography demonstrating severely calcified ostial 60-70% left ICA stenosis
DESCRIPTION OF PROCEDURE: Access was obtained via the right femoral artery on the first attempt using the micropuncture technique. Angiography demonstrates the puncture site to be in the mid right common femoral artery. A 5 [place] sheath was
placed. A 5 [place] DELON diagnostic catheter was advanced to the left carotid artery. Angiography demonstrates no disease in the left common carotid artery in its proximal and mid segments. There is 50% stenosis of the terminal 2-3 mm of the left
common carotid artery. The ostial external carotid artery has 50% stenosis. The ostial left ICA has severely calcific 60-70% stenosis. There is a 40% stenosis on an extremely angulated segment of the proximal left ICA about 25 mm distal to its
takeoff. Imaging up to the petrous section of the left ICA shows no other areas of stenosis. Cerebral imaging was not performed.
ANTI-COAGULATION THERAPY
1: Heparin 6000 units
Closure Device Used: 6 [place] Angio-Seal RFA
Radiation (mGy): 112
DAP (cm2.Gy): 15.3
Fluoroscopy time: 4.2 minutes
CONCLUSIONS: Left cervical carotid angiography demonstrating severely calcific 60-70% ostial left ICA stenosis and a 40 mm stenosis approximately 25 mm distal to the ICA origin. Following the angiogram, decision was made not to proceed with left
ICA stenting due to the extreme lesion calcification and the estimated severity being less than expected. She will continue with medical therapy. Plavix will be discontinued at the 3-month anniversary from her right ICA stent.
Of note, there is a 65 mm difference between the central aortic blood pressure and the left arm cuff pressure. It was previously noted and is due to left subclavian artery disease. All blood pressure should be obtained from the right arm. If the
left upper extremity is used, adding 65 to the measured systolic pressure would give an approximation of her true blood pressure
Copy to: Nick Yang MD, Brittany Harding MD
Nick Yang MD, LOCATED WITHIN [facility], [facility]
[2024-02-06] MEDS: TYLENOL 650 MG PO (11:07)
== END 2024-02-06 11:50 | disposition home or self-care (01) | DRG 68 ==
LOC: CATH-IN 06:05
PROVIDERS: ADMITTING PHYSICIAN Internal Medicine Cardiovascular Disease; FAMILY PHYSICIAN Student in an Organized Health Care Education/Training Program
PROC: B3141ZZ Fluoroscopy of Left Common Carotid Artery using Low Osmolar Contrast (ICD-10-PCS; 2024-02-06)
PROC: B31C1ZZ Fluoroscopy of Bilateral External Carotid Arteries using Low Osmolar Contrast (ICD-10-PCS; 2024-02-06)
PROC: B3171ZZ Fluoroscopy of Left Internal Carotid Artery using Low Osmolar Contrast (ICD-10-PCS; 2024-02-06)
DX: I65.23 Occlusion and stenosis of bilateral carotid arteries (principal); Z68.41 Body mass index [BMI] 40.0-44.9, adult; I50.32 Chronic diastolic (congestive) heart failure; I13.0 Hypertensive heart and chronic kidney disease with heart failure and stage 1 through stage 4 chronic kidney disease, or unspecified chronic kidney disease; E66.01 Morbid (severe) obesity due to excess calories; E78.5 Hyperlipidemia, unspecified; N18.30 Chronic kidney disease, stage 3 unspecified; I95.1 Orthostatic hypotension; G47.33 Obstructive sleep apnea (adult) (pediatric); E03.9 Hypothyroidism, unspecified; D63.1 Anemia in chronic kidney disease; G47.00 Insomnia, unspecified; K21.9 Gastro-esophageal reflux disease without esophagitis; K44.9 Diaphragmatic hernia without obstruction or gangrene; K76.0 Fatty (change of) liver, not elsewhere classified; I69.320 Aphasia following cerebral infarction; I69.898 Other sequelae of other cerebrovascular disease; R26.89 Other abnormalities of gait and mobility; Z79.02 Long term (current) use of antithrombotics/antiplatelets; Z79.82 Long term (current) use of aspirin; Z79.899 Other long term (current) drug therapy; Z87.891 Personal history of nicotine dependence; Z91.198 Patient's noncompliance with other medical treatment and regimen for other reason; Z98.1 Arthrodesis status
CPT/HCPCS: 36223; 36415; 80053; 85025; 93005; C1760; C1894; Q9967

== ENCOUNTER → 2024-10-16 12:13 | Outpatient (REF) | payer OTHER, SELFPAY | LOC: HWRCS 12:13 | PROVIDERS: ATTENDING PHYSICIAN Student in an Organized Health Care Education/Training Program; FAMILY PHYSICIAN Emergency Medicine | DX: I50.32 Chronic diastolic (congestive) heart failure (principal) | CPT/HCPCS: 93306 ==

== ENCOUNTER → 2024-12-24 14:14 | Outpatient (REF) | payer OTHER, SELFPAY | LOC: RAD 14:14 | PROVIDERS: ATTENDING PHYSICIAN Surgery Vascular Surgery; FAMILY PHYSICIAN Emergency Medicine | DX: I65.23 Occlusion and stenosis of bilateral carotid arteries (principal) | CPT/HCPCS: 93880 ==

== ENCOUNTER → 2025-01-07 12:23 | Outpatient (REF) | payer OTHER, SELFPAY | LOC: RAD 12:23 | PROVIDERS: ATTENDING PHYSICIAN Emergency Medicine | DX: R63.4 Abnormal weight loss (principal); R63.0 Anorexia | CPT/HCPCS: 71260; 74177; Q9967 ==

== ENCOUNTER 2025-02-14 06:13 | Day surgery (SDC) | payer OTHER, SELFPAY ==
[2025-02-14 10:04] VITALS: BMI 35.9
[2025-02-14 10:21] VITALS: BP 182/70
[2025-02-14 12:45] VITALS: BP 122/47
[2025-02-14 13:00] VITALS: BP 142/58
[2025-02-14 13:15] VITALS: BP 144/67
== END 2025-02-14 13:40 | disposition home or self-care (01) ==
LOC: SDS 06:13
PROVIDERS: ATTENDING PHYSICIAN Internal Medicine Gastroenterology; FAMILY PHYSICIAN Emergency Medicine
DX: D12.2 Benign neoplasm of ascending colon (principal); K57.30 Diverticulosis of large intestine without perforation or abscess without bleeding; K64.8 Other hemorrhoids; D50.9 Iron deficiency anemia, unspecified; K44.9 Diaphragmatic hernia without obstruction or gangrene
CPT/HCPCS: 45380; 43235; 88305

== ENCOUNTER → 2025-06-25 12:51 | Outpatient (REF) | payer OTHER, SELFPAY | LOC: RAD 12:51 | PROVIDERS: ATTENDING PHYSICIAN Surgery Vascular Surgery; FAMILY PHYSICIAN Emergency Medicine | DX: I65.23 Occlusion and stenosis of bilateral carotid arteries (principal) | CPT/HCPCS: 93880 ==